=== PATIENT | female | born 1985 | race Caucasian/White ===

== ENCOUNTER 2017-06-13 18:14 | Emergency (ER) | payer MEDICAID, OTHER ==
[2017-06-13 18:42] VITALS: O2SAT 96
--- NOTE | 2017-06-13 20:07 | EDPHY ---
H & P Stated Complaint: N/V;happens when she comes [place] sea level [place] altitude Time Seen by Provider: 06/13/17 20:05 HPI/ROS: HPI: This is a 31-year-old female presents with Chief Complaint: N/V;happens when she comes from sea level to altitude Location:GI Quality: Nausea vomiting Duration: Since this morning Signs and Symptoms: No fever, no dizziness, no abdominal pain, no urinary symptoms, no headache, no neck stiffness, no vision changes Timing: Sudden, intermittent episodes Severity: Moderate nature Context: Patient is originally from [facility] but lives in [place]. Flew in yesterday around 3:00 p.m. to visit friends and family. She stated till about 12 30 last night with her friends. She woke up this morning with nausea, chills and multiple episodes of vomiting. She denies any abdominal pain, fever, urinary symptoms, back pain. She is currently on her menses. She reports that this feels similar to prior episodes of her changing elevations. She does have a history of hypoglycemic seizures. She is unable to keep any fluids or foods down today. Modifying Factors: None Comment: ROS: see HPI Constitutional: No fever, no chills, no weight loss Eyes: No blurred vision Respiratory: No shortness of breath, no cough Cardiovascular: No chest pain Gastrointestinal: + nausea, + vomiting, + diarrhea Genitourinary: No dysuria Extremities: No myalgias Neurologic: No weakness, no numbness Skin: No rashes Hematologic: No bruising, no bleeding MEDICAL/SURGICAL/SOCIAL HISTORY: Medical history: Hypoglycemic seizures Surgical history: Denies Social history: Strong family support CONSTITUTIONAL: Nontoxic appearing adult white female, awake and alert, no obvious distress HEENT: Atraumatic and normocephalic, PERRL, EOMI. Tympanic membranes clear. Oropharynx clear, no exudate and moist pink mucosa. Airway patent. No lymphadenopathy. No meningismus. Cardiovascular: Normal S1/S2, regular rate, regular rhythm, without murmur rub or gallop. PULMONARY/CHEST: Symmetrical and nontender. Clear to auscultation bilaterally. Good air movement. No accessory muscle usage. ABDOMEN: Soft, nondistended, nontender, no rebound, no guarding, no peritoneal signs, no masses or organomegaly. No CVAT. EXTREMITIES: 2/2 pulses, strength 5/5, no deformities, no clubbing, no cyanosis or edema. NEUROLOGICAL: no focal neuro deficits. GCS 15. SKIN: Warm and dry, no erythema. no rash. Good capillary refill. Source: Patient, Family (Father) Exam Limitations: No limitations - Personal History LMP (Females 10-55): Now Current Tetanus Diphtheria and Acellular Pertussis (TDAP): Yes - Medical/Surgical History Other PMH: seizures - Social History Smoking Status: Former smoker Constitutional: Initial Vital Signs Temperature (C) 36.3 C 06/13/17 18:39 Heart Rate 75 06/13/17 18:39 Respiratory Rate 18 06/13/17 18:39 Blood Pressure 133/85 H 06/13/17 18:39 O2 Sat (%) 96 06/13/17 18:39 O2 Delivery Mode Room Air Allergies/Adverse Reactions: codeine Allergy (Mild, Verified 06/13/17 18:39) nausea Home Medications: Medication Instructions Recorded Amphet Asp and D/Amphet [Adderall 10 mg PO 06/13/17 10 MG (*)] Ondansetron Odt [Zofran Odt 4 mg 4 mg PO Q4 PRN #12 tab 06/13/17 (*)] Medical Decision Making ED Course/Re-evaluation: Labs, IV fluids, urinalysis, IV medications ordered Given 2 L normal saline IV promethazine No seizure activity noted. Afebrile and no systemic signs. 2055: Labs reviewed and grossly unremarkable. Differential Diagnosis: Differential diagnosis includes but is not limited to viral syndrome, altitude sickness, stress, dehydration, gastroenteritis. - Data Points Laboratory Results: Laboratory Results 06/13/17 20:09 06/13/17 20:09 06/13/17 06/13/17 06/13/17 20:09 20:09 20:09 WBC 4.45 10^3/uL 10^3/uL (3.80-9.50) RBC 3.63 10^6/uL L 10^6/uL (4.18-5.33) Hgb 13.1 g/dL g/dL (12.6-16.3) Hct 36.4 % L % (38.0-47.0) MCV 100.3 fL H fL (81.5-99.8) MCH 36.1 pg H pg (27.9-34.1) MCHC 36.0 g/dL g/dL (32.4-36.7) RDW 11.9 % % (11.5-15.2) Plt Count 66 10^3/uL L 10^3/uL (150-400) MPV 9.2 fL fL (8.7-11.7) Neut % (Auto) 79.1 % H % (39.3-74.2) Lymph % (Auto) 8.3 % L % (15.0-45.0) Nolan % (Auto) 11.0 % % (4.5-13.0) Eos % (Auto) 0.2 % L % (0.6-7.6) Baso % (Auto) 0.7 % % (0.3-1.7) Nucleat RBC Rel Count 0.0 % % (0.0-0.2) Absolute Neuts (auto) 3.52 10^3/uL 10^3/uL (1.70-6.50) Absolute Lymphs (auto) 0.37 10^3/uL L 10^3/uL (1.00-3.00) Absolute Monos (auto) 0.49 10^3/uL 10^3/uL (0.30-0.80) Absolute Eos (auto) 0.01 10^3/uL L 10^3/uL (0.03-0.40) Absolute Basos (auto) 0.03 10^3/uL 10^3/uL (0.02-0.10) Absolute Nucleated RBC 0.00 10^3/uL 10^3/uL (0-0.01) Immature Gran % 0.7 % % (0.0-1.1) Immature Gran # 0.03 10^3/uL 10^3/uL (0.00-0.10) Sodium 138 mEq/L mEq/L (134-144) Potassium 4.0 mEq/L mEq/L (3.5-5.2) Chloride 98 mEq/L mEq/L (97-110) Carbon Dioxide 23 mEq/l mEq/l (22-31) Anion Gap 17 mEq/L H mEq/L (8-16) BUN 5 mg/dL L mg/dL (7-23) Creatinine 0.6 mg/dL mg/dL (0.6-1.0) Estimated GFR > 60 Glucose 99 mg/dL mg/dL (70-100) Calcium 9.9 mg/dL mg/dL (8.5-10.4) Total Bilirubin 0.9 mg/dL mg/dL (0.1-1.4) Conjugated Bilirubin 0.3 mg/dL mg/dL (0.0-0.5) Unconjugated Bilirubin 0.6 mg/dL mg/dL (0.0-1.1) AST 130 IU/L H IU/L (14-46) ALT 64 IU/L H IU/L (9-52) Alkaline Phosphatase 55 IU/L IU/L (38-126) Total Protein 8.2 g/dL g/dL (6.3-8.2) Albumin 4.7 g/dL g/dL (3.5-5.0) Lipase 52 IU/L IU/L (23-300) Beta HCG, Qual NEGATIVE Medications Given: Discontinued Medications Sodium Chloride (Ns) 1,000 mls @ 0 mls/hr IV EDNOW ONE; Wide Open PRN Reason: Protocol Stop: 06/13/17 20:12 Last Admin: 06/13/17 20:14 Dose: 1,000 mls Sodium Chloride (Ns) 1,000 mls @ 0 mls/hr IV EDNOW ONE; Wide Open PRN Reason: Protocol Stop: 06/13/17 20:12 Last Admin: 06/13/17 20:14 Dose: 1,000 mls Ondansetron HCl (Zofran) 4 mg IVP EDNOW ONE Stop: 06/13/17 21:02 Last Admin: 06/13/17 21:33 Dose: 4 mg Ondansetron HCl (Zofran Odt 4 Mg Prepack#2) 1 btl TAKEHOME EDNOW ONE Stop: 06/13/17 21:02 Last Admin: 06/13/17 21:33 Dose: 1 btl Promethazine HCl (Phenergan) 12.5 mg IVP EDNOW ONE Stop: 06/13/17 20:12 Last Admin: 06/13/17 20:13 Dose: 12.5 mg Departure - Departure Disposition: Home, Routine, Self-Care Clinical Impression: Gastritis Qualifiers: Gastritis type: unspecified gastritis Chronicity: acute Gastritis bleeding: without bleeding Qualified Code(s): K29.00 - Acute gastritis without bleeding Condition: Good Instructions: Ondansetron (By mouth), Mountain Sickness (ED), Acute Nausea and Vomiting (ED) Referrals: MARIA ALEJANDRA VALLEJO [Other] - As per Instructions Prescriptions: Ondansetron Odt [Zofran Odt 4 mg (*)] 4 mg PO Q4 PRN #12 tab PRN Reason: Nausea/Vomiting, Use 1st
[2017-06-13] MEDS ORDERED: NS 1,000 ML IV ONE ×2 (20:11)
[2017-06-13] MEDS ORDERED: PROMETHAZINE HCL 25 MG/ML INJ IVP ONE (20:11)
[2017-06-13] MEDS ORDERED: PROMETHAZINE HCL 25 MG/ML INJ ONE (20:11)
[2017-06-13 20:18] VITALS: RESP 16
[2017-06-13 20:18] LABS: % IMMATURE GRANULYOCYTES 0.7 % (0.0-1.1); ABSOLUTE IMMATURE GRANULOCYTES 0.03 10^3/uL (0.00-0.10); ADD DIFF? NO; ADD MORPH? NO; ADD SCAN? NO; ATYPICAL LYMPHOCYTE FLAG 0 (0-99); FRAGMENT RBC FLAG 0 (0-99); HEMATOCRIT 36.4 % (38.0-47.0); HEMOGLOBIN 13.1 g/dL (12.6-16.3); LEFT SHIFT FLG 0 (0-99); LIPEMIA HEMOLYSIS FLAG 90 (0-99); MEAN CELL HEMOGLOBIN 36.1 pg (27.9-34.1); MEAN CELL VOLUME 100.3 fL (81.5-99.8); MEAN PLATELET VOLUME 9.2 fL (8.7-11.7); PLATELET CLUMPS FLAG 0 (0-99); PLATELET COUNT 66 10^3/uL (150-400); RED BLOOD CELL COUNT 3.63 10^6/uL (4.18-5.33); RED CELL DISTRIBUTION WIDTH 11.9 % (11.5-15.2)
[2017-06-13 20:34] LABS: ALANINE AMINOTRANSFERASE 64 IU/L (9-52); ALBUMIN 4.7 g/dL (3.5-5.0); ALKALINE PHOSPHATASE 55 IU/L (38-126); ANION GAP 17 mEq/L (8-16); ASPARTATE AMINOTRANSFERASE 130 IU/L (14-46); BILIRUBIN,TOTAL 0.9 mg/dL (0.1-1.4); BILIRUBIN-CONJUGATED 0.3 mg/dL (0.0-0.5); BILIRUBIN-UNCONJUGATED 0.6 mg/dL (0.0-1.1); CALCIUM 9.9 mg/dL (8.5-10.4); CARBON DIOXIDE 23 mEq/l (22-31); CHLORIDE 98 mEq/L (97-110); CREATININE 0.6 mg/dL (0.6-1.0); GLOMERULAR FILTRATION RATE > 60; GLUCOSE 99 mg/dL (70-100); SODIUM 138 mEq/L (134-144); TOTAL PROTEIN 8.2 g/dL (6.3-8.2)
[2017-06-13] MEDS ORDERED: ONDANSETRON 4MG PREPACK#2 BTL TAKEHOME ONE (21:01)
[2017-06-13] MEDS ORDERED: ONDANSETRON 4 MG/2 ML VIAL IVP ONE (21:01)
[2017-06-13 21:45] VITALS: BP 130/76; PULSE 86; TEMP 97.9
== END 2017-06-13 21:44 | disposition home or self-care (01) ==
DX: K29.00 Acute gastritis without bleeding (principal); E86.9 Volume depletion, unspecified; Z87.891 Personal history of nicotine dependence
CPT/HCPCS: 96374; J2405; J2550

== ENCOUNTER 2017-10-10 19:24 | Emergency (ER) | payer BC, MEDICAID ==
[2017-10-10] MEDS ORDERED: NS 1,000 ML IV ONE (19:53)
[2017-10-10] MEDS ORDERED: LORazepam 2 MG/ML INJ IVP ONE (20:10)
--- NOTE | 2017-10-10 20:18 | EDPHY ---
H & P Time Seen by Provider: 10/10/17 19:46 HPI/ROS: HPI Seizure. 32-year-old female by ambulance from home. This patient has a history of a seizure disorder. She does not take seizure medications. She lives [facility]. She grew up in [place]. She is visiting family. She went to altitude today at [place]. [place] she was not feeling well. She stated to her father that she felt nauseous and wanted to go back down into town. She got home, laid down on the couch for a while and then had a tonic-clonic seizure lasting a couple of minutes. Her last seizure was 2- 3 months ago. She reportedly has had seizures for quite a few years. Her mother tells me also that she drinks on a regular basis about a bottle of wine a day. She lives a democrat lifestyle. Currently the patient states that she feels mildly nauseous. She was started on IV normal saline by EMS. She was given 4 mg of IV Zofran by EMS. She states that she is feeling better. Denies significant headache. No neck pain. No loss of sensation or weakness in her extremities. ROS: Constitutional: No fever, no chills. No weakness. Eyes: No discharge. No changes in vision. ENT: No sore throat. No nasal congestion or rhinorrhea. Respiratory: No cough. No shortness of breath. Cardiac: No chest pain, no palpitations. Gastrointestinal: No abdominal pain, as above, no diarrhea. Genitourinary: No hematuria. No dysuria or increased frequency with urination. Musculoskeletal: No back pain. No neck pain. No myalgias or arthralgias. Skin: No rashes. Neurological: No headache. No focal weakness or altered sensation. Past medical history: Frequent urinary tract infections, seizure disorder, alcohol abuse. Social history: Nonsmoker. Lives in [facility]. As above. According to mother drinks about a bottle of wine or more a day. Physical Exam: General Appearance: Alert, tremulous but not in distress. This patient is responding to questions appropriately and in full sentences. This patient appears well-hydrated and well-nourished. Eyes: Pupils equal and round no pallor or injection. No lid edema, erythema or injection. No nystagmus. No photophobia. ENT, Mouth: Mucous membranes are moist. The pharyngeal tissues are unremarkable. No edema or swelling. No asymmetry suggestive of abscess. No erythema or exudates. Right anterior lateral tongue bite. Nonsuturable. Respiratory: There are no retractions, lungs are clear to auscultation with good air movement bilaterally. Cardiovascular: Regular rate and rhythm. No murmur. Gastrointestinal: Abdomen is soft and nontender, no masses, bowel sounds normal. No focal tenderness at McBurney's point. No Tran sign. Neurological: Motor sensory function is grossly intact. Cranial nerves are normal. Skin: Warm and dry, no rashes. Musculoskeletal: Neck is supple and nontender. No pain on flexion of her neck. Extremities are symmetrical. All joints range without pain or impingement. Psychiatric: No agitation. No depression. Database: EKG: Imaging: Procedures: Emergency department course: IV placed by EMS. She was started on normal saline, 1 L by EMS. She was given 4 mg of Zofran on transport. After my evaluation she was given 0.5 mg of IV Ativan. 9:10 p.m., patient re-evaluated. Resting comfortably at this time. Repeat neurologic Assessment is nonfocal. I discussed the results of her blood work with her, her sister and mother. They feel comfortable taking her home at this time and I feel she is safe for discharge. I discussed follow-up with Neurology. I will refer her to Dr. Bharath Erickson. I feel a possible component of her seizure this time is alcohol withdrawal. She has been instructed not to drive under any circumstances until cleared by Neurology. Return to emergency department precautions have been discussed with her and family. All of their questions were answered. She was discharged in good condition. Differential Diagnosis: The differential diagnosis on this patient includes but is not limited to breakthrough seizure, alcohol withdrawal seizure. This represents a partial list of diagnoses considered. These considerations are based on history, physical exam, past history, reassessment and diagnostic testing. Smoking Status: Former smoker Constitutional: Initial Vital Signs Temperature (C) 36.1 C 10/10/17 19:30 Heart Rate 87 10/10/17 19:30 Respiratory Rate 16 10/10/17 19:30 Blood Pressure 125/84 H 10/10/17 19:30 O2 Sat (%) 92 10/10/17 19:30 O2 Delivery Mode Room Air O2 (L/minute) 1.5 Allergies/Adverse Reactions: codeine Allergy (Mild, Verified 06/13/17 18:39) nausea Home Medications: Medication Instructions Recorded Amphet Asp and D/Amphet [Adderall 10 mg PO 06/13/17 10 MG (*)] Ondansetron Odt [Zofran Odt 4 mg 4 mg PO Q4 PRN #12 tab 06/13/17 (*)] Doxycycline Monohydrate 10/10/17 Macrobid 10/10/17 Promethazine HCl 25 mg PO 10/10/17 Medical Decision Making - Data Points Laboratory Results: Laboratory Results 10/10/17 19:24 10/10/17 10/10/17 19:24 19:24 Sodium 139 mEq/L mEq/L (135-145) Potassium 3.8 mEq/L mEq/L (3.5-5.2) Chloride 99 mEq/L mEq/L (97-110) Carbon Dioxide 10 mEq/l L mEq/l (22-31) Anion Gap 30 mEq/L H mEq/L (8-16) BUN 5 mg/dL L mg/dL (7-23) Creatinine 0.6 mg/dL mg/dL (0.6-1.0) Estimated GFR > 60 Glucose 165 mg/dL H mg/dL (70-100) Calcium 9.8 mg/dL mg/dL (8.5-10.4) Ethyl Alcohol < 10 mg/dL mg/dL (0-10) Medications Given: Discontinued Medications Sodium Chloride (Ns) 1,000 mls @ 0 mls/hr IV ONCE ONE; Wide Open PRN Reason: Protocol Stop: 10/10/17 19:54 Last Admin: 10/10/17 20:53 Dose: 1,000 mls Lorazepam (Ativan Injection) 0.5 mg IVP EDNOW ONE Stop: 10/10/17 20:11 Last Admin: 10/10/17 20:53 Dose: 0.5 mg Departure - Departure Disposition: Home, Routine, Self-Care Clinical Impression: Seizure, Seizure disorder Condition: Good Instructions: Recurrent Seizures in Adults (ED) Additional Instructions: Read and follow provided instructions. Follow-up with Neurology, Dr. Bharath Erickson or 1 of his partners in 1-2 days for re-evaluation. Call his office tomorrow morning for appointment time. Explained this is for an emergency department follow-up. Avoid drinking alcohol. Keep well hydrated. You're not to drive until cleared by Neurology. Return to the emergency department for worsening headache, weakness or loss of sensation in her extremities, seizure or other serious concerns. Your blood sugar was also noted to be elevated at 165. This should be followed by her primary care physician. Referrals: Patient,NotPresent [Unknown] - As per Instructions Bharath Erickson DO [Medical Doctor] - As per Instructions
[2017-10-10 21:23] VITALS: BP 117/82
== END 2017-10-10 21:21 | disposition home or self-care (01) ==
LOC: EDUNIT#
DX: G40.909 Epilepsy, unspecified, not intractable, without status epilepticus (principal); E86.9 Volume depletion, unspecified; Z87.891 Personal history of nicotine dependence
CPT/HCPCS: 96374; G0480; J2060

== ENCOUNTER 2018-10-27 11:01 | Inpatient (IN) | payer BC ==
[2018-10-27] MEDS ORDERED: LORazepam 1 MG TAB PO PRN (12:25)
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
[2018-10-27] MEDS: LORazepam 2 MG/ML INJ IVP PRN ×2 (12:36→13:31)
[2018-10-27] MEDS ORDERED: NS 1,000 ML IV ONE (12:36)
[2018-10-27 12:43] LABS: PLATELET COUNT 152 10^3/uL (150-400)
[2018-10-27] MEDS ORDERED: LORazepam 2 MG/ML INJ IVP ONE (14:08)
[2018-10-27] MEDS ORDERED: FLUMAZENIL 0.5 MG/5 ML MDV IVP PRN (14:08)
[2018-10-27] MEDS ORDERED: LORazepam 2 MG/ML INJ IVP PRN (14:08)
[2018-10-27] MEDS ORDERED: ACETAMINOPHEN 325 MG TAB PO PRN (14:11)
[2018-10-27] MEDS ORDERED: ONDANSETRON 4 MG/2 ML VIAL IVP PRN (14:11)
[2018-10-27] MEDS ORDERED: PROMETHAZINE HCL 25 MG/ML INJ IVP PRN (14:11)
[2018-10-27] MEDS ORDERED: ONDANSETRON DISINTEGRATING 4 MG TAB PO PRN (14:11)
[2018-10-27] MEDS ORDERED: NS 1,000 ML IV SCH (14:15)
[2018-10-27] MEDS: DEXMEDETOMIDINE HCL 400 MCG in NS 100 ML IV SCH ×2 (14:45→21:48)
--- NOTE | 2018-10-27 14:50 | GHP ---
[f rep st] HISTORY AND PHYSICAL DATE OF ADMISSION: 10/27/2018 HISTORY OF PRESENT ILLNESS: The patient is a 33-year-old female with history of alcoholism and anore ciera, who presents to the hospital in [place] alcohol withdrawal. She lives in [place] and she has had a number of alcohol-related hospitalizations there and possible alcohol withdrawal seizures vers us pseudoseizures. In February of 2018, she was hospitalized for 11 days, 6 of which were in the U with severe alcohol withdrawal. Her parents felt she was doing poorly and tried to get her to come home to [place]. Ultimately, she flew home Tuesday evening and she was tremulous but okay, eating poorly, and then became more agitate d today and they brought her into the emergency department. In speaking with Dr. Ibrahim, the emergency department physician, she was a bit confused but otherwise okay, but by the time I got to the room a couple hours later, the patient was agitated, being restrained by her parents. She has also recently been started on Wellbutrin. Dr. Ibrahim's note notes that she was seeing and beer and others hallucinations. She also had a couple of questionable seizures. She was tremulous but remained alert. Much of the history is obtained from her parents and sister at the bedside. She has struggled with a lcoholism for years as well as anorexia. REVIEW OF SYSTEMS: Complete 10-point review of systems conducted and negative except as noted in the HPI. PAST MEDICAL HISTORY: What sounds like alcohol dependence with alcohol withdrawals, questionable sei zure disorder. It sounds like she has had an EEG in the past that has been negative and perhaps one that has been positive. ALLERGIES: Codeine. HOME MEDICATIONS: Wellbutrin, Adderall, Advil PM, multivitamin, nitrofurantoin, and Pyridium. SOCIAL HISTORY: Lives in [place]. 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 No tobacco. FAMILY HISTORY: No significant alcoholism. PHYSICAL EXAM: PRESENTING VITALS: Temperature 37, blood pressure 123/100, pulse 126, breathing 16 t imes a minute, 98% on room air. GENERAL: She is agitated, picking at her clothes, needing to be res trained, mumbling nonsensically. HEENT: Sclerae anicteric. Oropharynx clear. Mucous membranes are moist. NECK: Supple without lymphadenopathy or JVD. LUNGS: Clear to auscultation bilaterally. H EART: S1, S2. Tachycardic. ABDOMEN: Soft, nontender, nondistended. LOWER EXTREMITIES: No edema. Calves are nontender. SKIN: Without rash. NEUROLOGIC: Exam notable for significant encephalopat hy, although she is alert. LABS: Tox screen negative. Ethanol level less than 10. Sodium 138, potassium 3.2, chloride 102, bi carb 20, BUN 9, creatinine 0.6. Beta hCG is negative. White count 8.5, hematocrit 36, MCV is normal , platelets are 152,000. There is no imaging. I have discussed the case with Dr. Tanya Ibrahim. ASSESSMENT/PLAN: A 33-year-old female with severe alcohol withdrawal, who actually has delirium trem ens. 1. Alcohol withdrawal. She is admitted to the ICU. I will give her scheduled Ativan of 2 q.6 and a Precedex drip. She received 2 mg of Ativan in the emergency department. I will give her 3 more now . 2. Alcohol dependence. I think this patient probably needs an inpatient rehab stay when this is com pleted. 3. Anxiety. She has recently been started on Wellbutrin. I will hold at this point. This has an u nknown contribution to her current situation. 4. Hypokalemia. This is mild. I will give her some potassium. 5. Prophylaxis with [id number] heparin. DISPOSITION: ICU, severe alcohol withdrawal. /[id number]/MODL
--- NOTE | 2018-10-27 15:22 | ASMTCMCOM ---
CM Note CM Note Notes: Pt presented to the ED through triage with her parents for delusions, visual hallucinations, and trouble sleeping x 72 hrs. Pt has a history of ETOH abuse (reports her last drink was 2 weeks ago), anorexia, depression (pt recently started on Wellbutrin), anxiety, and questionable seizure disorder (ETOH seizures vs pseudoseizures vs seizure d/o). Pt admitted for ETOH W/D delirium. Pt on [facility] protocol. 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 Pt has been hospitalized in the past for ETOH w/d in [facility]. PT/OT ordered. Anticipate pt to stabilize and hopefully consider Inpatient or IOP treatment options and provide various resources, whether pt will stay in [place] area or not. CM to follow. Date Signed: 10/27/2018 03:21 PM Electronically Signed By:Shanae Wolf RN
[2018-10-27] MEDS: THIAMINE HCL 500 MG in NS 100 ML IV SCH (15:25)
[2018-10-27] MEDS ORDERED: HALOPERIDOL LACT 5 MG/ML INJ ONE (15:26)
--- NOTE | 2018-10-27 15:32 | HOSPPROG ---
Hospitalist Progress Note Assessment/Plan: increasingly agitated in ICU despite precedex agitation worsened w receiving ativan, wory about paradoxical reaction 1. haldol 5 X 1 2. change scheduled benzo to librium 45 min crit care Objective: Vital Signs Temp Pulse Resp BP Pulse Ox 37.3 C 120 H 24 H 142/109 H 95 10/27/18 14:22 10/27/18 14:39 10/27/18 14:39 10/27/18 14:39 10/27/18 14:39 ICD10 Worksheet Patient Problems: Problems Problem Status Onset Alcohol withdrawal delirium Acute
[2018-10-27] MEDS ORDERED: HALOPERIDOL LACT 5 MG/ML INJ IVP ONE (15:45)
[2018-10-27] MEDS: POTASSIUM Cl (KCl) 100 ML IV SCH ×3 (15:45→20:19)
[2018-10-27] MEDS ORDERED: chlordiazePOXIDE 25 MG CAP PO SCH (16:00)
--- NOTE | 2018-10-27 16:55 | PDMN ---
Medical Necessity Medical necessity: [facility] M595 substance related disorders: 2 days: Admission to Inpatient Level of Care for Substance-Related Disorder for Adult is indicated due to ALL of the following: ETOH W/D with delirium tremens, tachycardia , elevated risk to historical factors HX of delirium with increasing agitation
[2018-10-27] MEDS: PHENAZOPYRIDINE HCL 100 MG TAB PO SCH ×2 (17:08→21:04)
--- NOTE | 2018-10-27 17:20 | GCON ---
[f rep st] CONSULTATION CRITICAL CARE CONSULTATION. DATE OF CONSULTATION: 10/27/2018 HISTORY OF PRESENT ILLNESS: This is a 33-year-old female with a history of alcoholism and seizure juan ruiz who normally lives in [place] and has been having difficulty with alcohol there and phoned her parents, who live in [place], a couple of days ago, and she was flown home. Since that time, caleb block has had increasing tremulousness, hallucinosis, and other signs of delirium, and was brought to the emergency department today. On arrival, she was tachycardic but not hypertensive and somewhat confu sed, and a CIWA protocol was started. According to emergency room records and physicians present, caleb block was also started on a Precedex drip, but her symptoms seemed to escalate quite dramatically until s he was given a dose of Haldol and was brought to the intensive care unit. In the ICU, she was quite sedated and nonverbal. Most of my history came from the mother and sister, who were present. I also spoke with Dr. Cuevas. She has a history of a seizure disorder that is ill-defined, probably because her care is somewhat fr agmented. In 2011, there was a discharge note from [facility] where she was admitted with seizure at that time. This was a witnessed seizure. She was postictal, and neurology service saw he r. An EEG, MRI, and CT scan were all negative. Subsequently, she was seen by Dr. Jennifer Shepard in [facility] and noted that there was a vascular malformation in her CT scan and was concerned this could b e a focus for seizure and recommended Keppra, but the patient was going back to [place], and furt her workup is uncertain at that time. I believe those records are available through the family event lissette. In any case, the patient has not had any alcohol since her arrival in [place] and is likely h aving alcohol withdrawal symptoms. REVIEW OF SYSTEMS: Otherwise negative, with the exception of recently starting Wellbutrin for depres tayler. PAST MEDICAL HISTORY: Includes: 1. Alcoholism. 2. Alcohol withdrawal. 3. Seizures of uncertain etiology. 4. Depression. 5. Eating disorder. PAST SURGICAL HISTORY: None. SOCIAL HISTORY: The alcohol but no other drugs and a minor smoking history. FAMILY HISTORY: Noncontributory. MEDICATIONS: At this time include Librium scheduled 20 t.i.d., Precedex drip, Lovenox, Pepcid, Macro bid, Zofran, pyridium, Phenergan, normal saline, and thiamin. PHYSICAL EXAM: VITAL SIGNS: At the time of my evaluation, her heart rate was down to 77 from a high of 125. Respirations were 22, oxygen saturation 97% on 3 L. GENERAL: She was of small stature and pale skin but lying in bed, somnolent and barely arousable. She occasionally would move her extremit ies but with no purposeful movement and occasional tremor. HEENT: Pupils were equally round and selina ctive to light, nonicteric and noninjected. Mucous membranes moist, without erythema or exudate. NE CK: Supple, without adenopathy or jugular vein distention. Breath sounds appear to be clear to ausc ultation bilaterally, without wheeze, rubs, or rales. HEART: Regular rate and rhythm, without murmu rs, rubs, gallops. ABDOMEN: Soft, nontender, nondistended, without hepatosplenomegaly. EXTREMITIES : Show no clubbing, cyanosis, or edema. NEUROLOGIC: Exam was remarkable for her significant somnol ence. SKIN: Warm and dry, without evidence of rash. OBJECTIVE DATA: Includes labs that were drawn on 10/25 for uncertain reasons, with a normal CBC and a fairly unremarkable complete metabolic panel. Labs from today show a white count of 8.5, hematocri t 36, platelets of 152. BMP remains fairly unremarkable save for an anion gap of 16 and an AST of 96 , which is up from 73 a couple days ago. Her tox screen is negative. Her alcohol level is undetecta ble. ASSESSMENT AND PLAN: 1. What appears to be alcohol withdrawal, which may have escalated with the initial Ativan. It is p ossible that this caused a paradoxical reaction or disinhibition that may have worsened her withdrawa l symptoms. In any case, she seems to be quite stable now and is on a Precedex drip. I would not el iminate Ativan from the protocol, particularly in somebody with a known history of seizure disorder a nd possibly related to alcohol withdrawal syndromes. We should be cautious with this and use low dos es. I agree with the scheduled Librium for now, and we can consider a benzo later, if necessary, and there is no documented history of her having these reactions in the past, and it may have been timin g of dose efficacy that resulted in her worsening behavior in the emergency room. In either case, ot her alternatives would be to consider a different type of agent, though this may have the same effect as well. While Haldol is particularly useful for hospital-based delirium, it is problematic in peop le with alcohol withdrawal and is considered a second- and possibly third-line agent at the least, pa rt of the issue being that it lowers the seizure threshold, which could be an issue in this patient. Another alternative would be to increase the Librium dose. 2. Seizures: Given her history, I think she is at high risk for seizure activity, and we will have to watch closely. We could consider neurology consult and an EEG or starting Keppra should these be observed closely. 3. Transaminitis: This could also be related to alcohol, though her increasing AST during this richard od of time when she has supposedly been abstinent is quite concerning. I will check the hepatitis se rologies to be sure and just observe closely. A total of about 45 minutes of critical care time was required for this patient. /[id number]/MODL
[2018-10-27] MEDS ORDERED: LORazepam 2 MG/ML INJ IVP SCH (18:00)
[2018-10-27] MEDS ORDERED: PROTOCOL CALCIUM 1 DOSE IV PRN (19:10)
[2018-10-27] MEDS ORDERED: PROTOCOL POTASSIUM 1 DOSE MISC PRN ×2 (19:10)
[2018-10-27] MEDS ORDERED: PROTOCOL MAGNESIUM 1 DOSE IV PRN (19:10)
[2018-10-27] MEDS ORDERED: PROTOCOL K PHOSPHATE 1 DOSE IV PRN (19:10)
[2018-10-27] MEDS ORDERED: MAGNESIUM SULF 2 GM/WATER 50 ML IV ONE (20:10)
[2018-10-27] MEDS: FAMOTIDINE 20 MG/NACL 50 ML IV SCH (20:19)
[2018-10-27] MEDS: HALOPERIDOL LACT 5 MG/ML INJ IVP PRN (20:19)
[2018-10-27] MEDS: NITROFURANTOIN MACROBID 100 MG CAP PO SCH (21:04)
[2018-10-28] MEDS: LORazepam 2 MG/ML INJ IVP SCH ×2 (00:29→06:22)
[2018-10-28] MEDS: HALOPERIDOL LACT 5 MG/ML INJ IVP PRN ×2 (00:29→06:22)
[2018-10-28 05:37] LABS: PLATELET COUNT 130 10^3/uL (150-400)
[2018-10-28 05:50] LABS: INR 1.1 (0.83-1.16); PROTIME(PATIENT) 13.8 SEC (12.0-15.0)
[2018-10-28] MEDS ORDERED: MAGNESIUM SULF 1 GM/DEXTROSE 100 ML IV ONE (06:12)
[2018-10-28] MEDS: POTASSIUM Cl (KCl) 100 ML IV SCH (06:39)
[2018-10-28] MEDS: DEXMEDETOMIDINE HCL 400 MCG in NS 100 ML IV SCH (06:39)
[2018-10-28] MEDS: ENOXAPARIN 40 MG/0.4 ML SYR SC SCH (08:53)
[2018-10-28] MEDS: FAMOTIDINE 20 MG/NACL 50 ML IV SCH ×2 (08:53→22:06)
--- NOTE | 2018-10-28 09:08 | HOSPPROG ---
Hospitalist Progress Note Assessment/Plan: 33 yo F w alcohol dependence here w delirium tremens alcohol withdrawal: continue scheduled ativan precedex for agitation control DC HALDOL she has a h/o prolonged withdrawal w multi day ICU stays alcoholic hepatitis: mild follow lft's urinary retention: fernandez for now electrolytes: continue electrolyte protocols anorexia: BMI 19 proph: LMWH dispo: icu Subjective: agitated yesterday PM. did have 1L in bladder. sedated this AM Objective: Vital Signs Temp Pulse Resp BP Pulse Ox 36.8 C 71 18 113/81 H 95 10/28/18 05:00 10/28/18 07:00 10/28/18 07:00 10/28/18 07:00 10/28/18 07:00 Laboratory Results 10/28/18 04:55 10/28/18 04:55 10/27/18 10/28/18 10/29/18 05:59 05:59 05:59 Intake Total 3629.27 Output Total 3150 Balance 479.27 PT 13.8 SEC (12.0-15.0) 10/28/18 04:55 INR 1.10 (0.83-1.16) 10/28/18 04:55 - Physical Exam Constitutional: no apparent distress, appears nourished Eyes: PERRL, anicteric sclera Ears, Nose, Mouth, Throat: moist mucous membranes, hearing normal Cardiovascular: regular rate and rhythym, no murmur, rub, or gallop Respiratory: no respiratory distress, no rales or rhonchi Gastrointestinal: normoactive bowel sounds, soft, non-tender abdomen Genitourinary: no bladder fullness, fernandez in urethra Skin: warm, normal color Musculoskeletal: full muscle strength Neurologic: other (fully encephalopathic), No AAOx3 Psychiatric: No interacting appropriately ICD10 Worksheet Patient Problems: Problems Problem Status Onset Alcohol withdrawal delirium Acute
[2018-10-28] MEDS: THIAMINE HCL 500 MG in NS 100 ML IV SCH (09:30)
[2018-10-28] MEDS: PHENAZOPYRIDINE HCL 100 MG TAB PO SCH ×3 (11:34→22:05)
[2018-10-28] MEDS: NITROFURANTOIN MACROBID 100 MG CAP PO SCH ×2 (11:35→22:06)
--- NOTE | 2018-10-28 12:20 | ASMTCMCOM ---
CM Note CM Note Notes: Met with patient's mother, Samaria and sisterClif regarding resources for the patient. Samaria states the patient plans to remain in [place] for now. They were referred to the Medicaid office to get her insurance transferred from [place]. Will also notify financial services so they can assist with the process. Samaria states they are interested in information on inpatient programs for the patient. Gave them all the Medicaid inpatient units and lists of AA meetings and crisis lines. Spoke with them about [employer] for family members. They had questions about patient taking Adderoll for ADD when she does not have a formal diagnosis. Discussed how they could get testing and a thorough social hx completed to determine if in fact she is ADD. CM to visit with the patient when she has improved to complete CAGE and give her information for support and programs available to her. CM will follow. Date Signed: 10/28/2018 12:19 PM Electronically Signed By:Lupe Pablo LCSW
[2018-10-28] MEDS: chlordiazePOXIDE 25 MG CAP PO SCH ×3 (12:23→22:06)
--- NOTE | 2018-10-28 16:27 | PDINTPN ---
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 She was treated in the ED with ativan and required rapidly escalating doses including precedex, but required Haldol on the floor. * etoh wd- much better today and off precedex drip without difficulty. Transitioning to po librium. Ativan may have had paradoxical effect, but I would discourage abandonment of this strategy in aptient with known wd seizures. Haldol may lower seizure threshold as well. Subjective: treated with haldol and ativan overnight pre-emptively by RN Objective: Vital Signs Temp Pulse Resp BP Pulse Ox 36.9 C 94 20 111/73 96 10/28/18 14:00 10/28/18 14:00 10/28/18 14:00 10/28/18 14:00 10/28/18 14:00 Laboratory Results 10/28/18 04:55 10/28/18 04:55 10/27/18 10/28/18 10/29/18 05:59 05:59 05:59 Intake Total 3629.27 166.0 Output Total 3150 1000 Balance 479.27 -834.0 PT 13.8 SEC (12.0-15.0) 10/28/18 04:55 INR 1.10 (0.83-1.16) 10/28/18 04:55 Physical Exam - Physical Exam General Appearance: no apparent distress, obtunded, thin EENT: PERRL/EOMI Neck: supple Respiratory: lungs clear, normal breath sounds, decreased breath sounds, No respiratory distress, No accessory muscle use Cardiac/Chest: regular rate, rhythm, No edema, No JVD Abdomen: non-tender, soft, No distended Skin: normal color, warm/dry, No cyanosis Lymphatic: no adenopathy Extremities: No pedal edema Neuro/Psych: cognition abnormalities, 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
[2018-10-28] MEDS ORDERED: POTASSIUM CL 10 MEQ TAB PO ONE (22:27)
[2018-10-29] MEDS ORDERED: POTASSIUM CL 10 MEQ TAB PO ONE (07:55)
[2018-10-29] MEDS ORDERED: CALCIUM GLUCONATE 50 ML IV ONE (07:56)
[2018-10-29] MEDS ORDERED: MAGNESIUM SULF 1 GM/DEXTROSE 100 ML IV ONE (07:59)
[2018-10-29] MEDS: chlordiazePOXIDE 25 MG CAP PO SCH ×3 (08:29→21:17)
[2018-10-29] MEDS: NITROFURANTOIN MACROBID 100 MG CAP PO SCH ×2 (08:30→21:17)
[2018-10-29] MEDS: ENOXAPARIN 40 MG/0.4 ML SYR SC SCH (08:30)
[2018-10-29] MEDS: PHENAZOPYRIDINE HCL 100 MG TAB PO SCH ×3 (09:11→21:17)
[2018-10-29] MEDS: THIAMINE HCL 500 MG in NS 100 ML IV SCH (10:22)
[2018-10-29] MEDS: FAMOTIDINE 20 MG/NACL 50 ML IV SCH (10:26)
--- NOTE | 2018-10-29 11:19 | HOSPPROG ---
Hospitalist Progress Note Assessment/Plan: 33 yo F w alcohol dependence here w delirium tremens alcohol withdrawal: improving lower CIWA continue tid librium alcoholic hepatitis: mild follow lft's urinary retention: trial of fernandez removal electrolytes: OK today allow to eat dc protocols anorexia: BMI 19 proph: LMWH dispo: icu Subjective: more alert, less agitated today Objective: Vital Signs Temp Pulse Resp BP Pulse Ox 36.8 C 91 16 137/93 H 96 10/29/18 08:00 10/29/18 08:00 10/29/18 08:00 10/29/18 08:00 10/29/18 08:00 Laboratory Results 10/28/18 04:55 10/29/18 04:37 10/28/18 10/29/18 10/30/18 05:59 05:59 05:59 Intake Total 3629.27 1666.0 Output Total 3150 4825 Balance 479.27 -3159.0 PT 13.8 SEC (12.0-15.0) 10/28/18 04:55 INR 1.10 (0.83-1.16) 10/28/18 04:55 - Physical Exam Constitutional: no apparent distress, appears nourished Eyes: PERRL, anicteric sclera Ears, Nose, Mouth, Throat: moist mucous membranes, hearing normal Cardiovascular: regular rate and rhythym, no murmur, rub, or gallop Respiratory: no respiratory distress Gastrointestinal: normoactive bowel sounds, soft, non-tender abdomen Genitourinary: no bladder fullness, fernandez in urethra Skin: warm, normal color Musculoskeletal: full muscle strength Neurologic: other (alert, conversant, still tremulous, possibly ocnfabulatory) Psychiatric: No interacting appropriately ICD10 Worksheet Patient Problems: Problems Problem Status Onset Alcohol withdrawal delirium Acute
[2018-10-29] MEDS: FAMOTIDINE 20 MG TAB PO SCH ×2 (11:43→21:17)
[2018-10-30] MEDS: chlordiazePOXIDE 25 MG CAP PO SCH (08:00)
[2018-10-30] MEDS: ENOXAPARIN 40 MG/0.4 ML SYR SC SCH (08:00)
[2018-10-30] MEDS: NITROFURANTOIN MACROBID 100 MG CAP PO SCH (08:00)
[2018-10-30] MEDS: FAMOTIDINE 20 MG TAB PO SCH (08:00)
[2018-10-30] MEDS: THIAMINE HCL 500 MG in NS 100 ML IV SCH (08:01)
[2018-10-30] MEDS: PHENAZOPYRIDINE HCL 100 MG TAB PO SCH (08:01)
--- NOTE | 2018-10-30 11:05 | ASMTCMCOM ---
CM Note CM Note Notes: Met with patient and her dad. Patient is going to [facility] for treatment after discharge from [facility]. Patient signed an SRINIVAS and it was submitted to medical records to get her records sent to [facility]. Patient is hoping to discharge today but the D.r has not been in to see her yet. CAGE completed and resources given to patient's family. No further needs. CM available if any d/c needs arise. Date Signed: 10/30/2018 11:03 AM Electronically Signed By:Lupe Pablo LCSW
--- NOTE | 2018-10-30 11:07 | ASMTCAGE ---
CAGE Do you feel you ought to Answers: Yes cut down on your drinking or drug use? Do people annoy you by Answers: No criticizing your drinking or drug use? Do you feel guilty about Answers: Yes your drinking or drug use? 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 Date Signed: 10/30/2018 11:05 AM Electronically Signed By:Lupe Pablo LCSW
[2018-10-30 11:27] VITALS: BP 115/81
--- NOTE | 2018-10-30 12:47 | HOSPPROG ---
Hospitalist Progress Note Assessment/Plan: 33 yo F w alcohol dependence here w delirium tremens alcohol withdrawal: improving lower CIWA continue tid librium alcoholic hepatitis: mild follow lft's urinary retention: trial of fernandez removal electrolytes: OK today allow to eat dc protocols anorexia: BMI 19 proph: LMWH dispo: withdrawal resolved home today family to take to [facility] > 30 minutes on dc Subjective: more alert. not tachycardic Objective: Vital Signs Temp Pulse Resp BP Pulse Ox 36.6 C 100 14 115/81 H 97 10/30/18 11:26 10/30/18 11:26 10/30/18 11:26 10/30/18 11:26 10/30/18 11:26 Laboratory Results 10/28/18 04:55 10/30/18 05:04 10/29/18 10/30/18 10/31/18 05:59 05:59 05:59 Intake Total 1666.0 Output Total 4825 Balance -3159.0 PT 13.8 SEC (12.0-15.0) 10/28/18 04:55 INR 1.10 (0.83-1.16) 10/28/18 04:55 - Physical Exam Constitutional: no apparent distress, appears nourished Eyes: PERRL, anicteric sclera, EOMI Ears, Nose, Mouth, Throat: moist mucous membranes, hearing normal Cardiovascular: regular rate and rhythym, no murmur, rub, or gallop Respiratory: no respiratory distress, no rales or rhonchi Gastrointestinal: normoactive bowel sounds, soft, non-tender abdomen Genitourinary: No fernandez in urethra Skin: warm, normal color Musculoskeletal: full muscle strength ICD10 Worksheet Patient Problems: Problems Problem Status Onset Alcohol withdrawal delirium Acute
--- NOTE | 2018-10-30 13:08 | GDS ---
[f rep st] DISCHARGE SUMMARY DISCHARGE DIAGNOSES: 1. Alcohol withdrawal. 2. Urinary retention. 3. Alcoholism with dependence. Please see admission history and physical by Dr. Brian Cuevas. The patient presented with alcohol withdrawal. She had come home from [facility] to be with her family here. She became tremulous and confused. She was brought in, found to be in severe withdrawal and very agitated. Her agitation im proved, but did not resolve with placement of Goff catheter and she had a liter of urine that draine d. The patient had evidence of a mildly elevated ALT without other evidence of hepatic dysfunction. Her INR is 1.1, which is a normal value in the [place] lab. Over the course of 3 days, she was managed on CIWA and scheduled Librium with improvement. On the da y of discharge, the patient was alert and oriented, slightly tremulous with some memory impairment bu t feeling well and with a heart rate that did come down below 100. At this point in time she is felt to be out of withdrawal. She is discharged with her parents with plans to go to Kevin at [facility] for inpatient alcohol withdrawal treatment. Copy requested to: Dr. Kevin Piedra at [facility] /[id number]/MODL
== END 2018-10-30 13:04 | disposition home or self-care (01) | DRG 897 ==
LOC: F2N 14:35 → F3E 10-28 13:53
PROVIDERS: ADMIT Internal Medicine; ATTEND Internal Medicine
DX: F10.231 Alcohol dependence with withdrawal delirium (principal); R33.9 Retention of urine, unspecified; K70.10 Alcoholic hepatitis without ascites; R63.0 Anorexia; G40.909 Epilepsy, unspecified, not intractable, without status epilepticus; Z68.1 Body mass index [BMI] 19.9 or less, adult; Z87.891 Personal history of nicotine dependence; Z87.440 Personal history of urinary (tract) infections
CPT/HCPCS: 80305; 92610-GN; 96374; 97116-GP; 97161-GP; 97165-GO; 97530-GO; 97535-GO; G0480; G0515-GO; J0610; J1630; J1650; J2060; J3411; J3475; J3480